=== PATIENT | female | born 1990 | race Caucasian/White ===

== ENCOUNTER 2016-06-08 01:33 | Emergency (ER) ==
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
[2016-06-08 03:10] VITALS: BP 131/75
--- NOTE | 2016-06-08 07:53 | Diag Imaging Result Document ---
PROCEDURE NAME: ANKLE COMPLETE LEFT - 06/08/2016 LEFT ANKLE, THREE VIEWS: FINDINGS: There is lateral soft tissue swelling. No fracture. No dislocation. IMPRESSION: Although there is lateral soft tissue swelling, there is no acute bony injury.
== END 2016-06-08 03:13 | disposition home or self-care (01) ==
LOC: ED 01:33
DX: S93.402A Sprain of unspecified ligament of left ankle, initial encounter (principal); W01.0XXA Fall on same level from slipping, tripping and stumbling without subsequent striking against object, initial encounter; M25.572 Pain in left ankle and joints of left foot; S99.912A Unspecified injury of left ankle, initial encounter; M79.1 Myalgia; M25.472 Effusion, left ankle
CPT/HCPCS: 99283